=== PATIENT | female | born 1930 | race Caucasian/White ===

== ENCOUNTER 2017-01-22 02:34 | Emergency (ER) | payer OTHER, MEDICARE ==
[2017-01-22] MEDS ORDERED: NS 1,000 ML IV ONE (02:41)
--- NOTE | 2017-01-22 02:43 | EDPHY ---
H & P HPI/ROS: HPI CHIEF COMPLAINT: Generalized weakness, cough HISTORY OF PRESENT ILLNESS: Patient very pleasant 86-year-old female she presents emergency room from [facility] by EMS. Patient reports here from her private independent living facility for coughing and generalized weakness. Patient concerned she may have pneumonia. She denies any chest pain. Denies headache. Denies dizziness. She reports that for the past day she has been feeling globally weak. Denies fever. Past Medical History: Pneumonia, CVA, hypertension, thyroid disease, hearing impaired Past Surgical History: No recent surgery. Social History: Resides at [place]. Independent. Denies drugs alcohol tobacco products. Family History: Noncontributory ROS REVIEW OF SYSTEMS: A comprehensive 10 point review of systems is otherwise negative aside from elements mentioned in the history of present illness. Exam Constitutional appears well nontoxic, elderly, slightly dehydrated, triage nursing summary reviewed, vital signs reviewed, awake/alert. Eyes normal conjunctivae and sclera, EOMI, PERRLA. HENT normal inspection, atraumatic, dry mucus membranes, no epistaxis, neck supple/ no meningismus, no raccoon eyes. Respiratory clear to auscultation bilaterally, normal breath sounds, no respiratory distress, no wheezing. Cardiovascular rate normal, regular rhythm, no murmur, no edema, distal pulses normal. Gastrointestinal soft, non-tender, no rebound, no guarding, normal bowel sounds, no distension, no pulsatile mass. Genitourinary no CVA tenderness. Musculoskeletal no midline vertebral tenderness, full range of motion, no calf swelling, no tenderness of extremities, no meningismus, good pulses, neurovascularly intact. Skin pink, warm, & dry, no rash, skin atraumatic. Neurologic awake, alert and oriented x 3, AAOx3, moves all 4 extremities equally, motor intact, sensory intact, CN II-XII intact, normal cerebellar, normal vision, normal speech. Psychiatric normal mood/affect. Heme/Lymph/Immune no lymphadenopathy. Differential Diagnosis: Includes but is not limited to in a particular order dehydration, electrolyte disturbance, urinary tract infection, pneumonia, ACS Medical Decision Making: Plan for this patient IV establishment with IV fluid bolus, check UA, chest x-ray two view to rule out pneumonia. Breathing treatment. EKG troponin. Re-evaluate. Check electrolytes. Re-evaluation: EKG interpretation by me on record in [employer] system. Impression time of EKG 3:23 a.m.. Sinus rhythm 83. LVH present. Q-waves noted V1 V2 V3. V4. Otherwise unremarkable EKG. No acute ischemia. Left anterior fascicular block present. CT scan of the head without contrast for confusion not feeling well negative for bleed or stroke. ED x-ray chest two view: Calcified aorta. Otherwise I do not appreciate any pneumonia. 0628: I did re-evaluate this patient this time she is resting comfortably she has no complaints. She feels much better she would like to go home. She ambulated well to the bathroom. I have not found any signs of significant infection. Her blood work has been reviewed is reassuring. Chest x-ray shows no pneumonia EKG does not show an acute ischemic event troponin negative. UA does not indicate infection. She feels much better after 1 L normal saline. She would like to go home. Return precautions have been given. She understands to return emergency room if she develops worsening symptoms questions or concerns. Source: Patient, EMS - Medical/Surgical History Hx Asthma: No Hx Chronic Respiratory Disease: No Hx Diabetes: No Hx Cardiac Disease: No Hx Renal Disease: No Hx Cirrhosis: No Hx Alcoholism: No Hx HIV/AIDS: No Hx Splenectomy or Spleen Trauma: No Other PMH: PNA X5, Hysterectomy, Left Shoulder replacement. - Social History Smoking Status: Former smoker Constitutional: Initial Vital Signs Temperature (C) 36.6 C 01/22/17 02:45 Heart Rate 83 01/22/17 02:45 Respiratory Rate 18 01/22/17 02:45 Blood Pressure 153/80 H 01/22/17 02:45 O2 Sat (%) 94 01/22/17 02:45 O2 Delivery Mode Room Air Allergies/Adverse Reactions: alcohol Allergy (Verified 02/29/16 11:11) Home Medications: Medication Instructions Recorded Aspirin [Aspirin 81mg (*)] 81 mg PO DAILY 02/29/16 Levothyroxine [Synthroid 50 mcg 50 mcg PO DAILY06 02/29/16 (*)] Multivitamins [Multivitamin (*)] 1 each PO DAILY 02/29/16 amLODIPine BESYLATE [Norvasc 10 mg 10 mg PO DAILY 02/29/16 (*)] Hydrocodone/APAP 5/325 [[place] 0.5 - 2 tab PO Q4HRS PRN #40 tab 03/01/16 5/325 (*)] Lidocaine 5% [Lidoderm 5% Patch 1 ea TD DAILY #30 patch 03/01/16 (*)] Lisinopril [Zestril 5 mg (*)] 5 mg PO DAILY #30 tab 03/01/16 Patch Removal 1 ea TD DAILY21 #0 patch 03/01/16 Sennosides/Docusate Sodium 1 - 2 tab PO BID #60 tab 03/01/16 [Senokot-S] Medical Decision Making - Data Points Laboratory Results: Laboratory Results 01/22/17 02:30 01/22/17 02:30 01/22/17 01/22/17 01/22/17 05:58 03:15 02:30 WBC RBC Hgb Hct MCV MCH MCHC RDW Plt Count MPV Neut % (Auto) Lymph % (Auto) [place] % (Auto) Eos % (Auto) Baso % (Auto) Nucleat RBC Rel Count Absolute Neuts (auto) Absolute Lymphs (auto) Absolute Monos (auto) Absolute Eos (auto) Absolute Basos (auto) Absolute Nucleated RBC Immature Gran % Immature Gran # PT 13.7 SEC SEC (12.0-15.0) INR 1.06 (0.83-1.16) APTT 27.5 SEC SEC (23.0-38.0) Sodium 142 mEq/L mEq/L (134-144) Potassium 4.1 mEq/L mEq/L (3.5-5.2) Chloride 107 mEq/L mEq/L (97-110) Carbon Dioxide 23 mEq/l mEq/l (22-31) Anion Gap 12 mEq/L mEq/L (8-16) BUN 23 mg/dL mg/dL (7-23) Creatinine 1.4 mg/dL H mg/dL (0.6-1.0) Estimated GFR 35 Glucose 120 mg/dL H mg/dL (70-100) Calcium 9.3 mg/dL mg/dL (8.5-10.4) Magnesium 2.2 mg/dL mg/dL (1.6-2.3) Total Bilirubin 0.6 mg/dL mg/dL (0.1-1.4) Conjugated Bilirubin 0.1 mg/dL mg/dL (0.0-0.5) Unconjugated Bilirubin 0.5 mg/dL mg/dL (0.0-1.1) AST 26 IU/L IU/L (14-46) ALT 27 IU/L IU/L (9-52) Alkaline Phosphatase 85 IU/L IU/L (38-126) Creatine Kinase 68 IU/L IU/L (0-156) CK-MB (CK-2) Fraction < 0.22 ng/mL ng/mL (0.00-3.19) Troponin I < 0.012 ng/mL ng/mL (0.000-0.034) NT-Pro-B Natriuret Pep 132 pg/mL pg/mL (0-450) Total Protein 6.6 g/dL g/dL (6.3-8.2) Albumin 4.0 g/dL g/dL (3.5-5.0) Lipase 81 IU/L IU/L (23-300) Urine Color YELLOW Urine Appearance HAZY Urine pH 5.0 (5.0-7.5) Ur Specific [place] 1.015 (1.002-1.030) Urine Protein NEGATIVE (NEGATIVE) Urine Ketones NEGATIVE (NEGATIVE) Urine Blood NEGATIVE (NEGATIVE) Urine Nitrate NEGATIVE (NEGATIVE) Urine Bilirubin NEGATIVE (NEGATIVE) Urine Urobilinogen NEGATIVE EU EU (0.2-1.0) Ur Leukocyte Esterase TRACE H (NEGATIVE) Urine RBC 1-3 /hpf /hpf (0-3) Urine WBC 3-5 /hpf H /hpf (0-3) Ur Epithelial Cells TRACE /lpf /lpf (NONE-1+) Urine Mucus TRACE /lpf /lpf (NONE-1+) Urine Glucose NEGATIVE (NEGATIVE) 01/22/17 01/22/17 02:30 02:30 WBC 13.08 10^3/uL H 10^3/uL (3.80-9.50) RBC 4.40 10^6/uL 10^6/uL (4.18-5.33) Hgb 13.4 g/dL g/dL (12.6-16.3) Hct 40.7 % % (38.0-47.0) MCV 92.5 fL fL (81.5-99.8) MCH 30.5 pg pg (27.9-34.1) MCHC 32.9 g/dL g/dL (32.4-36.7) RDW 14.0 % % (11.5-15.2) Plt Count 234 10^3/uL 10^3/uL (150-400) MPV 10.7 fL fL (8.7-11.7) Neut % (Auto) 76.1 % H % (39.3-74.2) Lymph % (Auto) 14.6 % L % (15.0-45.0) [place] % (Auto) 5.3 % % (4.5-13.0) Eos % (Auto) 3.0 % % (0.6-7.6) Baso % (Auto) 0.8 % % (0.3-1.7) Nucleat RBC Rel Count 0.0 % % (0.0-0.2) Absolute Neuts (auto) 9.95 10^3/uL H 10^3/uL (1.70-6.50) Absolute Lymphs (auto) 1.91 10^3/uL 10^3/uL (1.00-3.00) Absolute Monos (auto) 0.69 10^3/uL 10^3/uL (0.30-0.80) Absolute Eos (auto) 0.39 10^3/uL 10^3/uL (0.03-0.40) Absolute Basos (auto) 0.11 10^3/uL H 10^3/uL (0.02-0.10) Absolute Nucleated RBC 0.00 10^3/uL 10^3/uL (0-0.01) Immature Gran % 0.2 % % (0.0-1.1) Immature Gran # 0.03 10^3/uL 10^3/uL (0.00-0.10) PT REJ INR REJ APTT REJ Sodium Potassium Chloride Carbon Dioxide Anion Gap BUN Creatinine Estimated GFR Glucose Calcium Magnesium Total Bilirubin Conjugated Bilirubin Unconjugated Bilirubin AST ALT Alkaline Phosphatase Creatine Kinase CK-MB (CK-2) Fraction Troponin I NT-Pro-B Natriuret Pep Total Protein Albumin Lipase Urine Color Urine Appearance Urine pH Ur Specific [place] Urine Protein Urine Ketones Urine Blood Urine Nitrate Urine Bilirubin Urine Urobilinogen Ur Leukocyte Esterase Urine RBC Urine WBC Ur Epithelial Cells Urine Mucus Urine Glucose Medications Given: Discontinued Medications Albuterol/Ipratropium (Duoneb) 3 ml IH EDNOW ONE Stop: 01/22/17 02:46 Last Admin: 01/22/17 03:57 Dose: 3 ml Sodium Chloride (Ns) 1,000 mls @ 0 mls/hr IV EDNOW ONE; Wide Open PRN Reason: Protocol Stop: 01/22/17 02:42 Last Admin: 01/22/17 03:56 Dose: 1,000 mls Departure - Departure Disposition: Home, Routine, Self-Care Clinical Impression: Dehydration Condition: Good Instructions: Dehydration (ED) Additional Instructions: 1. Increase your fluid intake drink more fluids. 2. Return emergency room if he develops worsening symptoms includes not feeling well, vomiting, chest pain high fever. 3. Rest. Referrals: Patient,NotPresent [Unknown] - As per Instructions
[2017-01-22] MEDS ORDERED: IPRATROPIUM/ALBUTEROL 3 ML DEYVIAL IH ONE (02:45)
[2017-01-22 02:54] LABS: % IMMATURE GRANULYOCYTES 0.2 % (0.0-1.1); ABSOLUTE IMMATURE GRANULOCYTES 0.03 10^3/uL (0.00-0.10); ADD DIFF? NO; ADD MORPH? NO; ADD SCAN? NO; ATYPICAL LYMPHOCYTE FLAG 0 (0-99); FRAGMENT RBC FLAG 0 (0-99); HEMATOCRIT 40.7 % (38.0-47.0); HEMOGLOBIN 13.4 g/dL (12.6-16.3); LEFT SHIFT FLG 0 (0-99); LIPEMIA HEMOLYSIS FLAG 80 (0-99); MEAN CELL HEMOGLOBIN 30.5 pg (27.9-34.1); MEAN CELL HEMOGLOBIN CONCENTR. 32.9 g/dL (32.4-36.7); MEAN CELL VOLUME 92.5 fL (81.5-99.8); MEAN PLATELET VOLUME 10.7 fL (8.7-11.7); PLATELET CLUMPS FLAG 10 (0-99); PLATELET COUNT 234 10^3/uL (150-400)
[2017-01-22 03:07] LABS: ALANINE AMINOTRANSFERASE 27 IU/L (9-52); ALKALINE PHOSPHATASE 85 IU/L (38-126); ANION GAP 12 mEq/L (8-16); ASPARTATE AMINOTRANSFERASE 26 IU/L (14-46); BILIRUBIN,TOTAL 0.6 mg/dL (0.1-1.4); BILIRUBIN-CONJUGATED 0.1 mg/dL (0.0-0.5); BILIRUBIN-UNCONJUGATED 0.5 mg/dL (0.0-1.1); CALCIUM 9.3 mg/dL (8.5-10.4); CARBON DIOXIDE 23 mEq/l (22-31); CHLORIDE 107 mEq/L (97-110); CREATININE 1.4 mg/dL (0.6-1.0); GLOMERULAR FILTRATION RATE 35; GLUCOSE 120 mg/dL (70-100); MAGNESIUM 2.2 mg/dL (1.6-2.3); POTASSIUM 4.1 mEq/L (3.5-5.2); SODIUM 142 mEq/L (134-144); TOTAL PROTEIN 6.6 g/dL (6.3-8.2)
[2017-01-22 03:19] LABS: TROPONIN I < 0.012 ng/mL (0.000-0.034)
[2017-01-22 03:21] LABS: CREATINE KINASE-MB FRACTION < 0.22 ng/mL (0.00-3.19)
--- NOTE | 2017-01-22 03:25 | CPEKG ---
Heart Rate: 83 RR Interval: 723 P-R Interval: 196 QRSD Interval: 104 QT Interval: 396 QTC Interval: 466 P [place]: 70 QRS [place]: -63 T Wave [place]: 57 EKG Severity - ABNORMAL ECG - EKG Impression: SINUS RHYTHM EKG Impression: LEFT ATRIAL ABNORMALITY EKG Impression: LEFT ANTERIOR FASCICULAR BLOCK EKG Impression: LEFT VENTRICULAR HYPERTROPHY EKG Impression: ANTERIOR INFARCT, OLD Electronically Signed By: Ian Gomez 22-Jan-2017 07:06:24
[2017-01-22 03:28] VITALS: RESP 18
[2017-01-22 03:37] LABS: APTT 27.5 SEC (23.0-38.0); INR 1.06 (0.83-1.16); PROTIME(PATIENT) 13.7 SEC (12.0-15.0)
[2017-01-22 06:07] LABS: COLOR YELLOW; LEUKOCYTE ESTERASE,URINE TRACE (NEGATIVE); NITRITE,URINE NEGATIVE (NEGATIVE)
[2017-01-22 06:09] LABS: MUCUS TRACE /lpf (NONE-1+)
[2017-01-22 07:05] VITALS: BP 143/67; PULSE 81; TEMP 97.3; O2SAT 92
== END 2017-01-22 07:01 | disposition home or self-care (01) ==
LOC: EDUNIT#
PROC: 3E0337Z Introduction of Electrolytic and Water Balance Substance into Peripheral Vein, Percutaneous Approach (ICD-10-PCS; principal; 2017-01-22)
DX: E86.9 Volume depletion, unspecified (principal); E86.0 Dehydration; I10 Essential (primary) hypertension; Z79.82 Long term (current) use of aspirin; Z86.73 Personal history of transient ischemic attack (TIA), and cerebral infarction without residual deficits; Z87.891 Personal history of nicotine dependence

== ENCOUNTER → 2017-03-17 | Outpatient (CLI) | payer OTHER, MEDICARE | LOC: FIMAGING 15:43 | PROVIDERS: ATTEND Internal Medicine | DX: R91.8 Other nonspecific abnormal finding of lung field (principal); I25.10 Atherosclerotic heart disease of native coronary artery without angina pectoris ==

== ENCOUNTER 2017-03-20 13:35 | Inpatient (IN) | payer OTHER, MEDICARE ==
[2017-03-20] MEDS ORDERED: NS 1,000 ML IV ONE (16:19)
[2017-03-20] MEDS ORDERED: METOCLOPRAMIDE 10 MG/2 ML VIAL IVP ONE (16:19)
--- NOTE | 2017-03-20 16:25 | EDPHY ---
H & P Stated Complaint: intermittent hall and weak i Time Seen by Provider: 03/20/17 16:05 HPI/ROS: CHIEF COMPLAINT: Intermittent headache HISTORY OF PRESENT ILLNESS: The patient is a 86-year-old female who is brought to the ER by her granddaughter foreign intermittent head headache over the last 2 days. No fevers. No trauma. No focal deficits. 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 She was seen in the ER 2 months ago and diagnosed with dehydration but abnormality seen on the chest x- ray. Her primary ordered a follow-up CT scan done 2 days ago where a 2 cm masses found in her right upper lobe concerning for carcinoma. The patient states she has had mild dyspnea on exertion over the last 2 months. What brings her to the ER today however his the headache that is new but only tends to last for a minute or 2 each time. She complains of mild sinus congestion that began today. REVIEW OF SYSTEMS: Constitutional: denies: chills, fever, recent illness, recent injury EENTM: See HPI Respiratory: See HPI Cardiac: denies: chest pain, irregular heart rate, lightheadedness, palpitations Gastrointestinal/Abdominal: denies: abdominal pain, diarrhea, nausea, vomiting, blood streaked stools Genitourinary: denies: dysuria, frequency, hematuria, pain Musculoskeletal: denies: joint pain, muscle pain Skin: denies: lesions, rash, jaundice, bruising Neurological: See HPI denies: numbness, paresthesia, tingling, dizziness, weakness Hematologic/Lymphatic: denies: blood clots, easy bleeding, easy bruising Immunologic/allergic: denies: HIV/AIDS, transplant EXAM: GENERAL: Well-appearing, well-nourished and in no acute distress. HEAD: Atraumatic, normocephalic. EYES: Pupils equal round and reactive to light, extraocular movements intact, sclera anicteric, conjunctiva are normal. ENT: TMs normal, nares patent, oropharynx clear without exudates. Moist mucous membranes. NECK: Normal range of motion, supple without lymphadenopathy or JVD. LUNGS: Breath sounds clear to auscultation bilaterally and equal. No wheezes rales or rhonchi. HEART: Regular rate and rhythm without murmurs, rubs or gallops. ABDOMEN: Soft, nontender, normoactive bowel sounds. No guarding, no rebound. No masses appreciated. BACK: No CVA tenderness, no spinal tenderness, step-offs or deformities EXTREMITIES: Normal range of motion, no pitting or edema. No clubbing or cyanosis. NEUROLOGICAL: Cranial nerves II through XII grossly intact. Normal speech, normal gait. 5/5 strength, normal movement in all extremities, normal sensation PSYCH: Normal mood, normal affect. SKIN: Warm, dry, normal turgor, no visible rashes or lesions. Source: Patient Exam Limitations: No limitations - Personal History Current Tetanus/Diphtheria Vaccine: Unsure - Medical/Surgical History Hx Asthma: No Hx Chronic Respiratory Disease: No Hx Diabetes: No Hx Cardiac Disease: No Hx Renal Disease: No Hx Cirrhosis: No Hx Alcoholism: No Hx HIV/AIDS: No Hx Splenectomy or Spleen Trauma: No Other PMH: PNA X5, Hysterectomy, Left Shoulder replacement. - Family History Significant Family History: No pertinent family hx - Social History Smoking Status: Former smoker Alcohol Use: Sober Drug Use: None Constitutional: Initial Vital Signs Temperature (C) 36.7 C 03/20/17 13:50 Heart Rate 94 03/20/17 13:50 Respiratory Rate 17 03/20/17 13:50 Blood Pressure 169/93 H 03/20/17 13:50 O2 Sat (%) 94 03/20/17 13:50 O2 Delivery Mode Room Air Allergies/Adverse Reactions: alcohol Allergy (Verified 03/20/17 13:49) Home Medications: Medication Instructions Recorded Levothyroxine [Synthroid 50 mcg 50 mcg PO DAILY06 02/29/16 (*)] amLODIPine BESYLATE [Norvasc 10 mg 10 mg PO DAILY 02/29/16 (*)] Alendronate Sodium [Fosamax 70 MG 70 mg PO Q7D 03/20/17 (*)] Ergocalciferol [Vitamin D2 (*)] 50,000 unit PO Q30D 03/20/17 Herbals/Supplements -Info Only 1 ea PO DAILY 03/20/17 Venlafaxine HCl [Venlafaxine 75MG 112.5 mg PO DAILY 03/20/17 (*)] Medical Decision Making - Diagnostics Imaging: Discussed imaging studies w/ call or contact centre manager Radiologist ED Course/Re-evaluation: 6:30 p.m. the patient states that she does not feel any different. She got up to go to the bathroom and felt extremely weak and had to hold onto the wall. We discussed her CT and lab results which thus far reassuring. Urinalysis is still pending. I discussed the case with Dr. Mack who will admit to the medical service. Differential Diagnosis: Partial list of the Differential diagnosis considered include but were not limited to; tension headache, metastasis, dehydration, PE, cancer and although unlikely based on the history and physical exam, I also considered pneumonia, CVA, dissection. - Data Points Laboratory Results: Laboratory Results 03/20/17 17:20 03/20/17 17:20 Medications Given: Alendronate Sodium (Fosamax) 70 mg PO Q7D [facility] Stop: 09/17/17 10:44 Last Admin: 03/22/17 09:56 Dose: Not Given Amlodipine Besylate (Norvasc) 10 mg PO DAILY [facility] Stop: 09/17/17 08:59 Last Admin: 03/22/17 09:00 Dose: 10 mg Enoxaparin Sodium (Lovenox) 30 mg SC DAILY [facility] Stop: 09/17/17 08:59 Last Admin: 03/21/17 10:02 Dose: Not Given Hydralazine HCl (Apresoline) 10 mg PO Q6H PRN PRN Reason: sbp >160 Stop: 09/16/17 19:59 Last Admin: 03/22/17 05:17 Dose: 10 mg Levothyroxine Sodium (Synthroid) 50 mcg PO DAILY06 [facility] Stop: 09/17/17 05:59 Last Admin: 03/22/17 05:08 Dose: 50 mcg Senna/Docusate Sodium (Senokot-S) 1 - 2 tab PO BID [facility]DA PRN Reason: Protocol Stop: 09/18/17 20:59 Last Admin: 03/22/17 20:27 Dose: 1 tab Venlafaxine HCl (Venlafaxine Hcl) 112.5 mg PO DAILY [facility] Stop: 09/18/17 08:59 Last Admin: 03/22/17 09:00 Dose: Not Given Discontinued Medications Albuterol (Proventil Neb) 3 ml IH ONCE ONE Stop: 03/22/17 13:31 Last Admin: 03/22/17 15:28 Dose: Not Given Albuterol (Proventil Neb) 3 ml IH .STK-MED ONE Stop: 03/22/17 13:31 Last Admin: 03/22/17 13:30 Dose: 3 ml Fentanyl (Sublimaze) 75 mcg IVP .STK-MED ONE Stop: 03/22/17 13:42 Last Admin: 03/22/17 13:41 Dose: 75 mcg Sodium Chloride (Ns) 1,000 mls @ 0 mls/hr IV ONCE ONE; Wide Open PRN Reason: Protocol Stop: 03/20/17 16:20 Last Admin: 03/20/17 17:22 Dose: 1,000 mls Sodium Chloride (Ns) 1,000 mls @ 75 mls/hr IV CONT [facility] Stop: 09/16/17 19:44 Last Admin: 03/21/17 20:50 Dose: 1,000 mls Labetalol HCl (Trandate Injection) 10 mg IVP ONCE ONE Stop: 03/20/17 19:16 Last Admin: 03/20/17 19:48 Dose: 10 mg Lidocaine (Lidocaine 2% Jelly) 1 baron TP .STK-MED ONE Stop: 03/22/17 13:44 Last Admin: 03/22/17 13:43 Dose: 1 baron Lidocaine HCl (Lidocaine Hcl 1%) 30 mg MISC .STK-MED ONE Stop: 03/22/17 13:44 Last Admin: 03/22/17 13:43 Dose: 30 mg Lidocaine HCl (Lidocaine Hcl 4% Topical Solution) 2 ml MM .STK-MED ONE Stop: 03/22/17 13:31 Last Admin: 03/22/17 13:30 Dose: 2 ml Metoclopramide HCl (Reglan Injection) 10 mg IVP EDNOW ONE Stop: 03/20/17 16:20 Last Admin: 03/20/17 17:35 Dose: Not Given Midazolam HCl (Versed) 3 mg IVP .STK-MED ONE Stop: 03/22/17 13:42 Last Admin: 03/22/17 13:41 Dose: 3 mg Promethazine HCl (Phenergan) 12.5 mg IVP EDNOW ONE Stop: 03/20/17 16:30 Last Admin: 03/20/17 17:22 Dose: 12.5 mg Departure - Departure Disposition: [facility] Acute Clinical Impression: Mass of lung Headache Qualifiers: Headache type: unspecified Headache chronicity pattern: acute headache Intractability: not intractable Qualified Code(s): R51 - Headache Condition: Fair
[2017-03-20] MEDS ORDERED: PROMETHAZINE HCL 25 MG/ML INJ IVP ONE (16:29)
[2017-03-20] MEDS ORDERED: PROMETHAZINE HCL 25 MG/ML INJ ONE (16:30)
[2017-03-20 17:36] LABS: PLATELET COUNT 225 10^3/uL (150-400)
[2017-03-20 17:43] LABS: INR 0.97 (0.83-1.16); PROTIME(PATIENT) 13.1 SEC (12.0-15.0)
[2017-03-20] MEDS ORDERED: LABETALOL HCL 5 MG/ML 20 ML MDV IVP ONE (19:15)
[2017-03-20] MEDS ORDERED: ACETAMINOPHEN 325 MG TAB PO PRN (19:45)
[2017-03-20] MEDS ORDERED: ONDANSETRON DISINTEGRATING 4 MG TAB PO PRN (19:45)
[2017-03-20] MEDS ORDERED: ONDANSETRON 4 MG/2 ML VIAL IVP PRN (19:45)
--- NOTE | 2017-03-20 20:39 | GHP ---
[f rep st] HISTORY AND PHYSICAL DATE OF ADMISSION: 03/20/2017 CHIEF COMPLAINT: Weakness. HISTORY OF PRESENT ILLNESS: The patient is an 86-year-old female with a history of TIA, hypertension, and recurrent pneumonia, who presents to the emergency department with weakness. In addition, she complains of headaches over the past 2 days. She denies fevers. She denies chest pain, shortness of breath, abdominal pain, nausea, vomiting, diarrhea, or urinary symptoms. She is followed by Dr. Kovacs, through [facility]. A chest x-ray done back in January revealed a right upper lobe mass. An outpatient CT scan was then performed on March 17, which confirmed an irregular 1.9 cm right upper lobe mass highly suspicious for malignancy. They have not yet discussed the results with her primary care physician, and this was reviewed with them upon arrival to the emergency department. Given her weakness, headache, and lung mass, she was admitted to the hospital for further evaluation. In the emergency department, a head CT was negative for an acute intracranial process. PAST MEDICAL HISTORY: 1. Hypertension. 2. Recurrent pneumonia. 3. Hypothyroidism. 4. History of TIA. 5. Hearing deficit. PAST SURGICAL HISTORY: Left shoulder surgery and hysterectomy. FAMILY HISTORY: Negative for malignancy. SOCIAL HISTORY: The patient is a former smoker with a [id number] history, though she quit in the 1970s. She denies alcohol or drug use. She resides at [facility]. REVIEW OF SYSTEMS: A 10-point review of systems was performed and is negative except as per HPI. PHYSICAL EXAMINATION: VITAL SIGNS: Temperature 36.8, blood pressure 125/99, heart rate 92, respiratory rate 16. She is 95% on room air. GENERAL: The patient is awake, alert, and oriented, in no acute distress. She is hard of hearing. HEENT: Head is atraumatic, normocephalic. Pupils equal, round, react to light. Extraocular muscles are intact. Oropharynx is clear. Mucous membranes are moist. NECK: Supple. There is no JVD. HEART: Regular rate and rhythm. LUNGS: Clear to auscultation bilaterally. ABDOMEN: Soft, nondistended, nontender. Normoactive bowel sounds. EXTREMITIES: Without cyanosis, clubbing, or edema. NEUROLOGIC: Grossly nonfocal. She moves all 4 extremities. A bit confused. LABORATORY DATA: CBC reveals a normal white blood cell count, normal platelets. INR is 0.97. Basic metabolic panel shows normal electrolytes. Creatinine 1.5, BUN 28. Urinalysis shows 1+ protein, 15-25 white cells, trace bacteria and negative nitrites. Head CT performed in the emergency department is negative for an acute intracranial process, although it does show some diffuse cerebral atrophy and findings consistent with chronic microvascular ischemic gliosis. Chest CT without contrast shows an irregular 1.9 cm right upper lobe mass highly suspicious for malignancy, as well as multifocal subcentimeter ground- glass opacities, which could be related to bronchioloalveolar cell carcinoma, but are nonspecific. Coronary artery atherosclerosis is also noted. ASSESSMENT AND PLAN: The patient is an 86-year-old female with a history of hypertension and recurrent pneumonia, who presents to the emergency department with weakness, and is noted to have a right upper lobe mass on recent CT scan. 1. Right upper lobe mass. The patient wishes to proceed with further evaluation including biopsy and oncology consult. I reviewed the imaging with Radiology and this is likely amenable to interventional radiology biopsy. I also discussed the case with Oncology. We will proceed with a CT abdomen and pelvis to evaluate for any evidence of metastatic disease and also consider if there is a more amenable biopsy site. If not, the patient will be made n.p.o. at midnight in preparation for possible interventional radiology biopsy of her right upper lobe mass. Dr. Rausch, from the oncology service, will see the patient tomorrow. 2. Weakness. It is unclear if this may be related to malignancy versus volume depletion. There is no evidence of infection. She is afebrile and has a normal white count. As above, we will gently hydrate her and further workup of her lung mass is planned. Physical therapy and occupational therapy evaluations are requested. 3. Headache. I suspect this is related to her hypertension, which is poorly controlled. I will give her intravenous labetalol now along with p.r.n. hydralazine, and will need to continue her outpatient medications once her medication reconciliation is continued. She may warrant up-titration for better blood pressure control. 4. Chronic kidney disease. The patient's baseline creatinine is 1.4-1.5, and this has been stable since February 2016, therefore, I suspect she is at baseline. The CT scan referenced above will be performed without contrast. I will give her some gentle hydration with normal saline overnight to see if this improves, especially given her azotemia, which suggests a prerenal state. 5. Hypothyroidism. We will continue her levothyroxine once her medication reconciliation is completed. 6. Deep venous thrombosis prophylaxis. Lovenox is ordered to begin Monday morning. I will hold this for tomorrow given the possibility of intervention. Sequential compression devices are ordered for now. 7. Code status: Patient is full code. 8. Disposition. Patient is admitted to inpatient status. I anticipate she will require greater than 48 hours hospitalization for ongoing management of her headache, weakness, hypertension, and further evaluation of her lung mass. /[id number]/MODL MTDD
[2017-03-20] MEDS: NS 1,000 ML IV SCH (22:09)
[2017-03-21] MEDS: LEVOTHYROXINE 50 MCG TAB PO SCH (05:03)
[2017-03-21] MEDS ORDERED: ENOXAPARIN 30 MG/0.3 ML SYR SC SCH (09:00)
--- NOTE | 2017-03-21 09:40 | HOSPPROG ---
Hospitalist Progress Note Assessment/Plan: 86-year-old admitted for weakness, she has a history of hypertension, TIAs and recurrent pneumonia. Additionally she was recently noted to have a lung mass on CT scan, which has not been worked up yet. # weakness: Likely multifactorial, electrolytes stable renal function stable. Neurologic exam is nonfocal * Proceed with workup for lung mass as above * Physical and occupational therapy * Supportive care * Depending on tissue could consider MRI of the brain # lung mass: Likely primary however CT of the abdomen and pelvis is pending * discussed with oncology, mass may be high risk for pneumo for CT guided biopsy , * will discuss with pulm re: bronch, likely mediastinal nodes noted. # hypertension: Still elevated but better today will continue to monitor on p.r.n. IV medicines # hypothyroidism: On replacement and TSH within normal limits # history of TIA # chronic renal insufficiency stage III, baseline creatinine 1.4 # DVT proph: SCD, chem proph on hold for possible biopsy. Subjective: Patient new to me and chart reviewed. Complains of weakness it is difficult to estimate how long she has been weak it sounds like it has been intermittent. She does live in custodial. No specific complaints. Objective: Vital Signs Temp Pulse Resp BP Pulse Ox 36.7 C 73 14 128/67 H 93 03/21/17 08:19 03/21/17 08:19 03/21/17 08:19 03/21/17 08:19 03/21/17 08:19 Laboratory Results 03/21/17 05:04 03/20/17 03/21/17 03/22/17 05:59 05:59 05:59 Intake Total 1531 Output Total 400 Balance 1131 PT 13.1 SEC (12.0-15.0) 03/20/17 17:20 INR 0.97 (0.83-1.16) 03/20/17 17:20 - Physical Exam Constitutional: no apparent distress Eyes: PERRL, anicteric sclera, EOMI Ears, Nose, Mouth, Throat: moist mucous membranes, ears appear normal Cardiovascular: regular rate and rhythym Respiratory: no respiratory distress, clear to auscultation Gastrointestinal: normoactive bowel sounds, no palpable masses Genitourinary: no bladder fullness Skin: warm, No normal color (Pale) Musculoskeletal: generalized weakness, No muscular tenderness Neurologic: weakness (Generalized, no focal finding), No facial droop Psychiatric: interacting appropriately Lymph, Heme, Immunologic: no cervical LAD ICD10 Worksheet Patient Problems: Problems Problem Status Onset Headache Acute Mass of lung Acute Multiple fractures of ribs of left side Acute
[2017-03-21] MEDS: NS 1,000 ML IV SCH ×2 (10:00→20:50)
[2017-03-21] MEDS ORDERED: ALENDRONATE SODIUM 70 MG TAB PO SCH (10:45)
--- NOTE | 2017-03-21 10:56 | PDMN ---
Medical Necessity Medical necessity: Pt meets IP criteria per MD; est los >2 mn for eval/tx of R upper lobe mass, generalized weakness, headache, & htn; admit for further workup /monitoring, IVFs, med management, Oncology consult & therapies; hx TIA, htn, recurrent pneumonia, CKD; per H&P & order 03/20/17
--- NOTE | 2017-03-21 11:35 | GCON ---
[f rep st] CONSULTATION REQUESTING PHYSICIAN: Mary Kay Mack MD REASON FOR CONSULTATION: Possible right lung cancer. RECOMMENDATIONS: 1. Check CEA. 2. Instead of trying to do a transthoracic biopsy of her right lung mass, I would first consult Pulm onology to see if tissue could be obtained with bronchoscopy. The mass seems to be surrounded by a f air amount of lung tissue and I am concerned that an attempted biopsy would result in a pneumothorax. 3. Based on the patient's CT scan, she appears to have multiple nodules in both lungs. If this is a primary lung cancer, it would make her unresectable. We would therefore need tissue to look for tar gets that would be amenable to targeted agents. 4. At some point, after a diagnosis is made, the patient will need to have a PET-CT for staging. 5. Whether or not she wishes to embark on therapy will require discussion with the patient and her f amily and will also, in a large part, depend on what her therapeutic options are likely to be. ASSESSMENT: This 86-year-old very pleasant woman presented to the emergency room with weakness and w as also complaining of a cough. She denies any hemoptysis. She has had no weight loss. Her history is somewhat difficult to obtain because of her deafness, so some information is obtained from the [facility]. The patient's imaging is very suspicious for a primary lung cancer of the right lung. She does have a 35-pack year smoking history, although she quit in 1980. I think the lewis issue will be obtaining a tissue diagnosis. If this does not look like lung cancer, then hopefully getting enough material fo r testing for EGFR status as well as ALK and Ross-1 will be helpful. In addition, we would also hope to get enough tissue for PD-L1 testing. Once the full picture is elucidated and we know the extent of disease, we can have a discussion as to whether one of the targeted agents is appropriate or wheth er best supportive care might be the best alternative. HISTORY OF PRESENT ILLNESS: Please see assessment. PAST MEDICAL HISTORY: Hypertension, recurring pneumonia, hypothyroidism, history of TIA, and deafnes s, as previously mentioned. PAST SURGICAL HISTORY: Left shoulder surgery as well as a hysterectomy. FAMILY HISTORY: Apparently unremarkable for malignancy. SOCIAL HISTORY: The patient smoked from approximately the age of 16 until 1980. She smoked approxim ately 1 pack of cigarettes per day, which gives her an approximately 35-pack year history. She does not use drugs or alcohol. She lives at the [facility]. PRIMARY CARE PHYSICIAN: Dr. Kovacs who sees her through physician house calls. REVIEW OF SYSTEMS: Remarkable for a dry cough and increased weakness. No weight loss. She has also had some headaches. Her 10-system review is otherwise unremarkable. PHYSICAL EXAMINATION: GENERAL: This is an alert, hard of hearing, and pleasant woman who is playing Words with Friends on her tablet device. NECK: No adenopathy. LUNGS: Few rales at the left base. CARDIAC: Regular rhythm. ABDOMEN: No hepatosplenomegaly to palpation. She has a soft abdomen an d active bowel sounds. No ascites is noted. LYMPH NODES: Peripheral lymph node exam shows no palpa ble adenopathy in the neck, axilla, or groin bilaterally. MUSCULOSKELETAL: Significant kyphosis. We will look forward to following along with her during this hospitalization and beyond as the inform ation comes in and we continue with the decision-making process. /[id number]/MODL
--- NOTE | 2017-03-21 15:46 | ASMTCMCOM ---
CM Note CM Note Notes: Pt admitted with headache and lung mass. Hx of HTN, TIAs, PNA. She lives at [facility]. PT/OT have cleared her. Pt to have workup for lung mass. CM will follow for any d/c needs. Date Signed: 03/21/2017 03:45 PM Electronically Signed By:TABATHA Briones
[2017-03-21] MEDS: hydrALAZINE 10 MG TAB PO PRN (20:49)
--- NOTE | 2017-03-21 20:58 | GCON ---
[f rep st] CONSULTATION CHEST CONSULTATION I have been asked to see patient by Dr. Mag Henriquez for my opinion of a right upper lobe lung mass. HISTORY OF PRESENT ILLNESS: The patient is an extremely pleasant 86-year-old white female with a pas t medical history including hypertension, recurrent pneumonia, hypothyroidism, and a TIA. She was ad mitted on 03/20/2017 for weakness. Subsequent workup revealed a right upper lobe 1.9 cm mass. In di scussion with the patient, states overall she is feeling somewhat better, but still weak. She denies any cough or productive sputum. There is no chest pain, pleuritic-type chest pain or angina equival ent. She denies any hemoptysis. She has no weight loss. There has been no fever or night sweats. Currently, she is resting comfortably. PAST MEDICAL HISTORY: Significant for hypertension, recurrent pneumonia, hypothyroidism, history of TIA. FAMILY HISTORY: Noncontributory. SOCIAL HISTORY: A 40+ pack-year smoking history, quit in 1979. She denies any alcohol use since 197 6. She is . She resides at [facility]. She has lived in [place] for appr oximately 3 years. She is originally from [place]. PAST SURGICAL HISTORY: She has had a left shoulder surgery and hysterectomy. REVIEW OF SYSTEMS: A 10-point review of symptoms was performed, and is negative except for what is l isted in HPI. PHYSICAL EXAM: VITAL SIGNS: Blood pressure is 164/86, pulse 82, respirations are 15, temperature 36 .8, oxygen saturation 94% on 1.75 L. GENERAL: She is a well-developed, well-nourished, elderly whit e female who is resting comfortably, in no acute distress. HEENT: Eyes are PERRLA, EOMI. Throat sh ows no erythema or tonsillar hypertrophy. NECK: Supple. No cervical adenopathy. HEART: Regular r ate and rhythm with a 2/6 systolic murmur at left sternal border without radiation. LUNGS: Diminish ed breath sounds. Mild prolongation expiratory phase, but no wheeze. ABDOMEN: Soft, nontender. Sundeep wel sounds are present in all 4 quadrants. EXTREMITIES: No clubbing, cyanosis, or edema. LABORATORIES: White count is 8.5, hemoglobin 14, hematocrit 44, platelet count 225, INR is 0.97, sod ium 144, potassium 4.0, chloride 110, CO2 21, BUN is 24, creatinine 1.4, glucose is 92. CT scan of the chest again reveals a 2 cm right upper lobe irregular shaped mass. There are also sub centimeter ground-glass opacifications throughout both lungs. IMPRESSION: Lung mass, etiology of which is unclear, though bronchogenic carcinoma would appear to b e most likely. RECOMMENDATIONS: We will perform fiberoptic bronchoscopy tomorrow. /[id number]/MODL
[2017-03-22] MEDS: LEVOTHYROXINE 50 MCG TAB PO SCH (05:08)
[2017-03-22] MEDS: hydrALAZINE 10 MG TAB PO PRN ×2 (05:17→22:23)
[2017-03-22 05:46] LABS: PLATELET COUNT 198 10^3/uL (150-400)
--- NOTE | 2017-03-22 08:46 | HOSPPROG ---
Hospitalist Progress Note Assessment/Plan: # RUL mass, multifocal ground glass opacities - bronchoscopy for bx today # weakness, multifocal - treat htn, possible malig and follow - PT/OT rec's home # htn - still elevated but has been labile - cont norvasc today and follow; consider starting another agent - hydralazine prn # hypothyroid - synthroid # hx TIA - not being treated # depr - effexor # CKD - probably baseline # dvt ppx - lovenox Subjective: still feels weak; discussed the broncoscopy today Objective: Vital Signs Temp Pulse Resp BP Pulse Ox 36.4 C 95 18 169/98 H 93 03/22/17 08:08 03/22/17 08:08 03/22/17 08:08 03/22/17 08:08 03/22/17 08:08 Laboratory Results 03/22/17 05:10 03/22/17 05:10 03/21/17 03/22/17 03/23/17 05:59 05:59 05:59 Intake Total 1531 2161 Output Total 400 1400 Balance 1131 761 PT 13.1 SEC (12.0-15.0) 03/20/17 17:20 INR 0.97 (0.83-1.16) 03/20/17 17:20 CT chest, abd, head reviewed chart reviewed - Physical Exam Constitutional: no apparent distress, appears nourished, not in pain Cardiovascular: regular rate and rhythym, no murmur, rub, or gallop Respiratory: no respiratory distress, no rales or rhonchi, clear to auscultation Gastrointestinal: normoactive bowel sounds, soft, non-tender abdomen, no palpable masses ICD10 Worksheet Patient Problems: Problems Problem Status Onset Multiple fractures of ribs of left side Acute Headache Acute Mass of lung Acute
[2017-03-22] MEDS: VENLAFAXINE HCL 75 MG TAB PO SCH (09:00)
--- NOTE | 2017-03-22 09:57 | SOAPPROG ---
JIM Progress Note Assessment/Plan: Assessment: - RUL lung mass with multiple bilateral pulmonary nodules. Patient is to get a bronchoscopy today for diagnostic purposes. - She has no new questions until more information is available. Plan: - Bronch today - Home when back to baseline for follow up as an outpatient. Subjective: No new complaints Objective: Vital Signs Temp Pulse Resp BP Pulse Ox 36.4 C 95 18 169/98 H 93 03/22/17 08:08 03/22/17 08:08 03/22/17 08:08 03/22/17 08:08 03/22/17 08:08 Laboratory Results 03/22/17 05:10 03/22/17 05:10 03/20/17 03/21/17 03/22/17 23:59 23:59 23:59 Intake Total 1000 1842 850 Output Total 1200 600 Balance 1000 642 250 PT 13.1 SEC (12.0-15.0) 03/20/17 17:20 INR 0.97 (0.83-1.16) 03/20/17 17:20 Physical Exam - Physical Exam General Appearance: alert, no apparent distress Respiratory: No crackles, No rales, No rhonchi, No stridor, No wheezing Cardiac/Chest: regular rate, rhythm Abdomen: non-tender, soft Neuro/Psych: alert, normal mood/affect ICD10 Worksheet Patient Problems: Problems Problem Status Onset Headache Acute Mass of lung Acute Multiple fractures of ribs of left side Acute
[2017-03-22] MEDS ORDERED: LACTULOSE 20 GM/30 ML UDCUP PO PRN (10:03)
[2017-03-22] MEDS ORDERED: MAGNESIUM HYDROXIDE 30 ML UDCUP PO PRN (10:03)
[2017-03-22] MEDS ORDERED: POLYETHYLENE GLYCOL 3350 17 GM PKT PO PRN (10:03)
[2017-03-22] MEDS ORDERED: BISACODYL 10 MG SUPP PR PRN (10:03)
[2017-03-22] MEDS ORDERED: traMADol 50 MG TAB PO PRN (10:03)
[2017-03-22] MEDS ORDERED: ALBUTEROL 3 ML DEYVIAL ONE (12:18)
[2017-03-22] MEDS ORDERED: LIDOCAINE 1% 300 MG/30 ML SDV ONE (12:18)
[2017-03-22] MEDS ORDERED: LIDOCAINE 2% JELLY 5 ML TUBE ONE (13:00)
[2017-03-22] MEDS ORDERED: ALBUTEROL 3 ML DEYVIAL IH ONE ×2 (13:30)
[2017-03-22] MEDS ORDERED: LIDOCAINE HCL 4% TOPICAL SOLN 50ML MM ONE (13:30)
[2017-03-22] MEDS ORDERED: MIDAZOLAM 2 MG/2 ML VIAL ONE (13:30)
[2017-03-22] MEDS ORDERED: fentaNYL 100 MCG/2 ML INJ ONE (13:30)
--- NOTE | 2017-03-22 13:30 | PDPROPOC ---
Sedation Plan of Care Sedation Plan of Care: vital signs stable, mental status noted, patient educated of risks, benefits, alternatives, patient can tolerate sedation ASA Classification: ASA 2 Planned drugs: fentanyl, midazolam Mallampati Score: Class 2 Mallampati Reference Image: Patient passed 3-3-2 rule?: Yes
[2017-03-22] MEDS ORDERED: fentaNYL 100 MCG/2 ML INJ IVP ONE (13:41)
[2017-03-22] MEDS ORDERED: MIDAZOLAM 2 MG/2 ML VIAL IVP ONE (13:41)
[2017-03-22] MEDS ORDERED: LIDOCAINE 1% 300 MG/30 ML SDV MISC ONE (13:43)
[2017-03-22] MEDS ORDERED: LIDOCAINE 2% JELLY 5 ML TUBE TP ONE (13:43)
--- NOTE | 2017-03-22 14:01 | BVPULMO ---
[facility]- Pulmonology Patient Name: Gali Martin Procedure Date: 03/22/2017 12:57 PM Patient Type: Inpatient Attending MD/ER Physician: Sanchez Haro MD Procedure: Bronchoscopy Indications: Right upper lobe mass Providers: Sanchez Haro MD Medicines: Lidocaine 1% applied to cords 2 mL, Lidocaine 1% subglottic space 4 mL, Midazol am 3 mg mg IV, Fentanyl 75 mcg IV Complications: No immediate complications Procedure: After informed consent, a time out was performed. N95 masks were worn, and the procedure was done in a negative pressure room. The patient was given appropria te topical anesthesia and intravenous sedation. The fiberopic bronchoscope was pas sed via a bite block orally into the larynx and subsequently into the lower trachea bronchial tree. Throughout the procedure, the patient's blood pressure, pulse, and oxygen saturations were monitored continuously. The Bronchoscope (Video) was introduced through the mouth and advanced to the tracheobronchial tree of both lungs. The procedure was accomplished without difficulty. The patient tolerated the procedure well. The total duration of the procedure was 19 minutes. Total fluoroscopy time was 1 minute, 30 seconds. Findings: The oropharynx appears normal. The larynx appears normal. The vocal cords appea r normal. The subglottic space is normal. The trachea is of normal caliber. The c nelly is sharp. The tracheobronchial tree was examined to at least the first subsegme ntal level. Bronchial mucosa and anatomy are normal; there are no endobronchial lesi ons, and no secretions. Endobronchial biopsies of a mass were performed in the right upper lobe using a forceps. Five samples were obtained. Bronchoalveolar lavage was performed in the RUL apical segment (B1) of the lung and sent for cell count, bacterial culture, viral smears & culture, and fungal & AF B analysis and cytology. 80 mL of fluid were instilled. 40 mL were returned. The return was bloody. There were no mucoid plugs in the return fluid. Post Op Diagnosis: - Right upper lobe mass - The examination was normal. - An endobronchial biopsy was performed. - Bronchoalveolar lavage was performed. Estimated Blood Loss: Estimated blood loss: none. Recommendation: - Await BAL and biopsy results. Attending Participation: I personally performed the entire procedure. Sanchez Haro MD Sanchez Haro MD 03/22/2017 2:00:27 PM This report has been signed electronicallyThomas MD Tahir Number of Addenda: 0 Note Initiated On: 03/22/2017 12:57 PM [email or web address]
--- NOTE | 2017-03-22 14:46 | SOAPPROG ---
SOAP Progress Note Assessment/Plan: Assessment: * Right upper lobe lung mass * Weakness * Dyspnea Plan: Will perform fiberoptic bronchoscopy today Subjective: Resting comfortably. Denies any cough or production of sputum. There is no fever. She is breathing easily Objective: Vital Signs Temp Pulse Resp BP Pulse Ox 37.0 C 95 18 149/108 H 93 03/22/17 13:15 03/22/17 13:15 03/22/17 13:15 03/22/17 13:15 03/22/17 13:15 Laboratory Results 03/22/17 05:10 03/22/17 05:10 03/21/17 03/22/17 03/23/17 05:59 05:59 05:59 Intake Total 1531 2161 Output Total 400 1400 100 Balance 1131 761 -100 PT 13.1 SEC (12.0-15.0) 03/20/17 17:20 INR 0.97 (0.83-1.16) 03/20/17 17:20 - Time Spent With Patient Time Spent With Patient: 25 min of time spent with patient, over half involved with coordination of care or counseling Physical Exam - Physical Exam General Appearance: alert, no apparent distress EENT: PERRL/EOMI, normal ENT inspection Neck: non-tender Respiratory: decreased breath sounds, prolonged expiration, No wheezing Cardiac/Chest: normal peripheral pulses, regular rate, rhythm, systolic murmur Abdomen: normal bowel sounds, non-tender, soft Pelvic Exam: deferred Rectal: deferred Skin: normal color, warm/dry Extremities: normal range of motion, non-tender, normal inspection, normal capillary refill Neuro/Psych: alert, oriented x 3 ICD10 Worksheet Patient Problems: Problems Problem Status Onset Headache Acute Mass of lung Acute Multiple fractures of ribs of left side Acute
[2017-03-22] MEDS: SENNOSIDES/DOCUSATE SODIUM TAB PO SCH (20:27)
[2017-03-22 22:06] VITALS: O2SAT 94
[2017-03-23] MEDS: LEVOTHYROXINE 50 MCG TAB PO SCH (04:56)
[2017-03-23] MEDS: hydrALAZINE 10 MG TAB PO PRN (04:58)
[2017-03-23 08:56] VITALS: BP 151/96; PULSE 108; RESP 20; TEMP 97.7
[2017-03-23] MEDS: VENLAFAXINE HCL 75 MG TAB PO SCH (09:44)
[2017-03-23] MEDS: SENNOSIDES/DOCUSATE SODIUM TAB PO SCH (09:45)
--- NOTE | 2017-03-23 12:07 | PDIAF ---
- Diagnosis Diagnosis: RUL mass s/p biopsy Code Status: Full Code - Medication Management Discharge Medications: Medications to Continue on Transfer Levothyroxine [Synthroid 50 mcg (*)] 50 mcg PO DAILY06 02/29/16 [Last Taken Unknown] amLODIPine BESYLATE [Norvasc 10 mg (*)] 10 mg PO DAILY 02/29/16 [Last Taken Unknown] Alendronate Sodium [Fosamax 70 MG (*)] 70 mg PO Q7D 03/20/17 [Last Taken Unknown ] Ergocalciferol [Vitamin D2 (*)] 50,000 unit PO Q30D 03/20/17 [Last Taken Unknown ] Herbals/Supplements -Info Only 1 ea PO DAILY 03/20/17 [Last Taken Unknown] Venlafaxine HCl [Venlafaxine 75MG (*)] 112.5 mg PO DAILY 03/20/17 [Last Taken Unknown] Atenolol [Tenormin 25 mg (*)] 25 mg PO DAILY #30 tab 03/23/17 [Last Taken Unknown] Discharge Medications: Refer to the Discharge Home Medication list for PRN reason. - Orders Services needed: Home Care, Registered Nurse, Physical Therapy, Occupational Therapy Home Care Face to Face: I certify that this patient was under my care and that I had the required [id number] encounter meeting the encounter requirements on the discharge day. My findings support the fact that the patient is homebound as defined in Home Care Face to Face Continued: CMS Chapter 7 Medicare Benefits Manual 30.1.1 , The condition of the patient is such that there exists a normal inability to leave home and consequently, leaving home would require a considerable and taxing effort. - Follow Up Care Current Providers and Referrals: MD NOREEN [Other] - As per Instructions Mag Henriquez MD [Medical Doctor] - Osbaldo Rausch MD [Medical Doctor] -
--- NOTE | 2017-03-23 12:26 | GDS ---
[f rep st] DISCHARGE SUMMARY ALL DIAGNOSES: 1. Right upper lobe mass status post bronchoscopic biopsy with pathology pending. 2. Uncontrolled hypertension. 3. Weakness which is multifactorial. 4. Hypothyroid. 5. History of a transient ischemic attack. 6. Depression. 7. Chronic kidney disease. HOSPITAL COURSE: This is an 86-year-old female who presented with weakness. She had recently been diagnosed with a right upper lobe mass as an outpatient, was thus sent in for further evaluation and workup. She underwent bronchoscopic biopsy on 03/22/2017, by Dr. Haro. Pathology is pending at the time of discharge. She was seen by Dr. Rausch with Oncology. She will follow up with him as an outpatient. She complains of weakness with many possible etiologies. She was seen by PT and OT who cleared her for home with home health. She has been quite hypertensive. Previously on amlodipine, I have added atenolol 25 mg on discharge discussing side effects, including worsening of her fatigue, hypotension and bradycardia. I have given her a referral to see Dr. Henriquez with primary care as her daughter is not happy with her current primary care physician. PENDING STUDIES AT TIME OF DISCHARGE: Right upper lobe mass pathology. FOLLOWUP: 1. Dr. Rausch for management of her mass. 2. Dr. Henriquez or other PCP for management of her chronic medical problems. BILLING: I spent more than 30 minutes on the day of discharge coordinating care. /[id number]/MODL MTDD
--- NOTE | 2017-03-23 16:02 | ASDISCHSUM ---
Discharge Information Plan Status: Medically Cleared to Leave: Discharge Date:03/23/2017 03:50 PM CM D/C Disposition: ADT D/C Disposition:Home Health Service Projected Discharge Date:03/23/2017 03:50 PM Transportation at D/C: Discharge Delay Reason: Follow-Up Date:03/23/2017 03:50 PM Discharge Slot: Final Diagnosis: Placement Information Patient Contact Information Contact Name:LAUREEN Relationship:Daughter Address:[address] [place] [address] Work Phone: City:[place] [facility] Phone: State/Zip Code:[place] [address] Email: Financial Information Financial Class: Primary Plan Desc:MEDICARE INPATIENT Primary Plan Number:[id number] Secondary Plan Desc:AARP/MDR SUPPLEMENT Secondary Plan Number:[id number] Assessment Information [facility] CM Progress Note CM Note CM Note Notes: Pt admitted with headache and lung mass. Hx of HTN, TIAs, PNA. She lives at [facility]. PT/OT have cleared her. Pt to have workup for lung mass. CM will follow for any d/c needs. Date Signed: 03/21/2017 03:45 PM Electronically Signed By:TABATHA Briones [facility] CM Progress Note CM Note CM Note Notes: Pt ready for DC. Met with pt's dtr to discuss DC needs. PT/OT cleared pt. Dtr unsure pt needs an RN. She is more interested in having someone come daily to help pt get up and dressed in the AM. Gave dtr a list of pvt duty agencies. Spoke with admin at [facility] where pt lives and let them know that if pt foes need and RN they call CM to help set that up. Date Signed: 03/23/2017 04:01 PM Electronically Signed By:Kristyn Allen LCSW Intervention Information Intervention Type:*IM-Signed Date of Service:03/23/2017 12:49 PM Patient Type:Inpatient Staff Member:Viv Holloway Hours: Discipline: Severity: Comment:
--- NOTE | 2017-03-23 16:41 | ASMTCMCOM ---
CM Note CM Note Notes: Received a call from Renetta in home health at [facility]. Pt just arrived back there after DC from [facility]. They would like pt to have home health for weakness even though pt cleared by PT/OT. DR Anderson wrote for HC RN/PT/OT. Faxed to [facility] at [phone] F, P Date Signed: 03/23/2017 04:33 PM Electronically Signed By:Kristyn Allen LCSW
[2017-03-27] MEDS ORDERED: ERGOCALCIFEROL 50,000 I.UNIT CAP PO SCH (09:00)
== END 2017-03-23 15:50 | disposition home health service (06) | DRG 168 ==
LOC: OBSVTOIN 18:29 → F1N 20:18
PROVIDERS: ADMIT Hospitalist; ATTEND Student in an Organized Health Care Education/Training Program
DX: R91.8 Other nonspecific abnormal finding of lung field (principal); R53.1 Weakness; I12.9 Hypertensive chronic kidney disease with stage 1 through stage 4 chronic kidney disease, or unspecified chronic kidney disease; N18.3 Chronic kidney disease, stage 3 (moderate); E03.9 Hypothyroidism, unspecified; Z86.73 Personal history of transient ischemic attack (TIA), and cerebral infarction without residual deficits; Z87.891 Personal history of nicotine dependence; Z87.01 Personal history of pneumonia (recurrent)
CPT/HCPCS: 96374; 97116-GP; 97161-GP; 97166-GO; 97535-GO; G8978-GP-CI; G8979-GP-CH; G8987-GO-CI; G8988-GO-CI; J0171; J2250; J2550; J3010; J3490; J7613

== ENCOUNTER 2017-08-16 12:59 | Observation (INO) | payer OTHER, MEDICARE ==
[2017-08-16] MEDS ORDERED: ONDANSETRON 4 MG/2 ML VIAL IVP ONE (13:12)
--- NOTE | 2017-08-16 13:15 | EDPHY ---
H & P Time Seen by Provider: 08/16/17 13:05 HPI/ROS: CHIEF COMPLAINT: Abdominal pain and vomiting HISTORY OF PRESENT ILLNESS: Patient says she has "felt bad" for the past 2 days and today had some left lower quadrant abdominal and suprapubic pain associated today with several episodes of vomiting. Presents with severe nausea currently, mild abdominal discomfort. Nausea worse with oral intake. No alicia red blood per rectum or melena. No recent injury or trauma. No fever or chills and no urinary symptoms. REVIEW OF SYSTEMS: Eye: no change in vision ENT: no sore throat Cardiac: no chest pain or syncope Pulmonary: no cough or SOB Abdomen: HPI Musculoskeletal: no back pain Skin: no rash Neuro: no headache Constitutional: no fever : no urinary symptoms A comprehensive 10 point review of systems is otherwise negative aside from elements mentioned in the history of present illness. PAST MEDICAL HISTORY: Includes hysterectomy, left shoulder replacement, lung cancer. Social history: Lives at [place] General Appearance: Alert and conversant, cooperative. Eyes: No scleral icterus. ENT, Mouth: Dry mucous membranes. Respiratory: Normal respiratory effort, breath sounds equal, lungs are clear to auscultation. Cardiovascular: Regular rate and rhythm. Gastrointestinal: Left upper and lower quadrant tenderness without rebound or guarding. Neurological: Alert, face symmetric, normal motor and sensory in extremities. Skin: Warm and dry, no rashes. Musculoskeletal: No peripheral edema. Psychiatric: Not agitated. Emergency Department course/MDM: Plan i-STAT, IV fluids and Zofran for nausea and vomiting, CT scanning abdomen and pelvis. 1526: CT per Dr. Hansen shows constipation but negative for renal colic or bowel obstruction or other cause for abdominal pain. Ceftriaxone 1 g IV, probable UTI and nausea and vomiting, admission for inability to tolerate oral medications at home. Smoking Status: Former smoker Constitutional: Initial Vital Signs Temperature (C) 37 C 08/16/17 12:59 Heart Rate 116 H 08/16/17 12:59 Respiratory Rate 20 08/16/17 12:59 Blood Pressure 174/113 H 08/16/17 12:59 O2 Sat (%) 94 08/16/17 12:59 O2 Delivery Mode Room Air O2 (L/minute) 2 Allergies/Adverse Reactions: alcohol Allergy (Verified 08/16/17 13:10) Home Medications: Medication Instructions Recorded Levothyroxine [Synthroid 50 mcg 50 mcg PO DAILY06 02/29/16 (*)] amLODIPine BESYLATE [Norvasc 10 mg 10 mg PO DAILY 02/29/16 (*)] Alendronate Sodium [Fosamax 70 MG 70 mg PO CHAPMAN@0730 03/20/17 (*)] Ergocalciferol [Vitamin D2 (*)] 50,000 unit PO Q30D 03/20/17 Venlafaxine HCl [Venlafaxine 75MG 112.5 mg PO DAILY 03/20/17 (*)] Atenolol [Tenormin 25 mg (*)] 25 mg PO DAILY #30 tab 03/23/17 Multivitamins [Multivitamin (*)] 1 each PO DAILY 08/16/17 Medical Decision Making - Diagnostics EKG Interpretation: 12-lead EKG interpreted by me; official reading is in trace master. My interpretation is sinus tachycardia rate 104, LVH. Old anterior OR. Imaging Results: Imaging Impressions Abdomen/Pelvis CT 08/16/17 14:39 Impression: 1. Constipation, with a moderate amount of stool throughout the entire colon including the rectosigmoid colon. 2. Sigmoid diverticulosis, without diverticulitis. 3. Ectatic abdominal aorta, with extensive atherosclerotic aorta and iliac arteries. 4. Nonobstructive bilateral nephrolithiasis. No hydronephrosis. 5. Prior cholecystectomy. Attention: This CT examination is specifically designed to evaluate patients who are clinically suspected of having acute obstructive uropathy. This examination does not use radiographic contrast, and as such, provides only a limited evaluation of the abdomen, pelvis, and retroperitoneum. If there is further clinical suspicion for pathological conditions other than obstructive uropathy, a complete CT evaluation of the abdomen and pelvis utilizing intravenous, oral, and rectal contrast should be considered. Findings and recommendations discussed with Emergency Department physician, John Uribe M.D., at 1529 hours, on August 16, 2017. Final report concurs with initial preliminary interpretation. E:CN/ampako Imaging: Discussed imaging studies w/ labor mediator Radiologist Differential Diagnosis: Differential considered including but not limited to diverticulitis, UTI, bowel obstruction, gastroenteritis. Consult/Admit Bed Type: [place] [id number] - Data Points Laboratory Results: Laboratory Results 08/16/17 14:10 08/16/17 14:10 08/16/17 08/16/1718 14:25 14:21 14:10 WBC RBC Hgb POC Hgb 13.6 gm/dL gm/dL (12.6-16.3) Hct POC Hct 40 % % (38-47) MCV MCH MCHC RDW Plt Count MPV Neut % (Auto) Lymph % (Auto) [place] % (Auto) Eos % (Auto) Baso % (Auto) Nucleat RBC Rel Count Absolute Neuts (auto) Absolute Lymphs (auto) Absolute Monos (auto) Absolute Eos (auto) Absolute Basos (auto) Absolute Nucleated RBC Immature Gran % Immature Gran # POC Sodium 142 mEq/L mEq/L (135-145) Sodium POC Potassium 4.1 mEq/L mEq/L (3.3-5.0) Potassium POC Chloride 109 mEq/L mEq/L (97-110) Chloride Carbon Dioxide Anion Gap POC BUN 27 mg/dL H mg/dL (7-23) BUN Creatinine POC Creatinine 1.6 mg/dL H mg/dL (0.6-1.0) Estimated GFR Glucose POC Glucose 98 mg/dL mg/dL (70-100) Calcium TSH 0.913 uIU/mL uIU/mL (0.465-4.680) Urine Color YELLOW Urine Appearance CLEAR Urine pH 5.0 (5.0-7.5) Ur Specific [place] 1.012 (1.002-1.030) Urine Protein NEGATIVE (NEGATIVE) Urine Ketones TRACE H (NEGATIVE) Urine Blood NEGATIVE (NEGATIVE) Urine Nitrate NEGATIVE (NEGATIVE) Urine Bilirubin NEGATIVE (NEGATIVE) Urine Urobilinogen NEGATIVE EU EU (0.2-1.0) Ur Leukocyte Esterase 1+ H (NEGATIVE) Urine RBC 5-10 /hpf H /hpf (0-3) Urine WBC 10-15 /hpf H /hpf (0-3) Ur Epithelial Cells TRACE /lpf /lpf (NONE-1+) Hyaline Casts 1-5 /lpf /lpf (0-1) Urine Mucus TRACE /lpf /lpf (NONE-1+) Urine Glucose NEGATIVE (NEGATIVE) 08/16/17 08/16/17 14:10 14:10 WBC 10.56 10^3/uL H 10^3/uL (3.80-9.50) RBC 4.23 10^6/uL 10^6/uL (4.18-5.33) Hgb 12.6 g/dL g/dL (12.6-16.3) POC Hgb Hct 38.1 % % (38.0-47.0) POC Hct MCV 90.1 fL fL (81.5-99.8) MCH 29.8 pg pg (27.9-34.1) MCHC 33.1 g/dL g/dL (32.4-36.7) RDW 14.7 % % (11.5-15.2) Plt Count 214 10^3/uL 10^3/uL (150-400) MPV 10.0 fL fL (8.7-11.7) Neut % (Auto) 82.2 % H % (39.3-74.2) Lymph % (Auto) 10.4 % L % (15.0-45.0) [place] % (Auto) 5.5 % % (4.5-13.0) Eos % (Auto) 0.9 % % (0.6-7.6) Baso % (Auto) 0.7 % % (0.3-1.7) Nucleat RBC Rel Count 0.0 % % (0.0-0.2) Absolute Neuts (auto) 8.69 10^3/uL H 10^3/uL (1.70-6.50) Absolute Lymphs (auto) 1.10 10^3/uL 10^3/uL (1.00-3.00) Absolute Monos (auto) 0.58 10^3/uL 10^3/uL (0.30-0.80) Absolute Eos (auto) 0.09 10^3/uL 10^3/uL (0.03-0.40) Absolute Basos (auto) 0.07 10^3/uL 10^3/uL (0.02-0.10) Absolute Nucleated RBC 0.00 10^3/uL 10^3/uL (0-0.01) Immature Gran % 0.3 % % (0.0-1.1) Immature Gran # 0.03 10^3/uL 10^3/uL (0.00-0.10) POC Sodium Sodium 143 mEq/L mEq/L (135-145) POC Potassium Potassium 4.4 mEq/L mEq/L (3.3-5.0) POC Chloride Chloride 107 mEq/L mEq/L (97-110) Carbon Dioxide 21 mEq/l L mEq/l (22-31) Anion Gap 15 mEq/L mEq/L (8-16) POC BUN BUN 26 mg/dL H mg/dL (7-23) Creatinine 1.4 mg/dL H mg/dL (0.6-1.0) POC Creatinine Estimated GFR 35 Glucose 92 mg/dL mg/dL (70-100) POC Glucose Calcium 9.1 mg/dL mg/dL (8.5-10.4) TSH Urine Color Urine Appearance Urine pH Ur Specific [place] Urine Protein Urine Ketones Urine Blood Urine Nitrate Urine Bilirubin Urine Urobilinogen Ur Leukocyte Esterase Urine RBC Urine WBC Ur Epithelial Cells Hyaline Casts Urine Mucus Urine Glucose Medications Given: Acetaminophen (Tylenol) 650 mg PO Q4HRS PRN PRN Reason: Pain, Mild/Fever, Can Take PO Stop: 02/12/18 15:52 Last Admin: 08/16/17 20:32 Dose: 650 mg Amlodipine Besylate (Norvasc) 10 mg PO DAILY [facility] Stop: 02/12/18 16:14 Last Admin: 08/16/17 17:28 Dose: 10 mg Atenolol (Tenormin) 25 mg PO DAILY LINDA Stop: 02/12/18 16:14 Last Admin: 08/16/17 17:27 Dose: 25 mg Levothyroxine Sodium (Synthroid) 50 mcg PO DAILY06 [facility] Stop: 02/12/18 16:14 Last Admin: 08/16/17 17:27 Dose: 50 mcg Polyethylene Glycol (Miralax) 17 gm PO DAILY LINDA PRN Reason: Protocol Stop: 02/12/18 16:09 Last Admin: 08/16/17 17:28 Dose: 17 gm Senna/Docusate Sodium (Senokot-S) 1 - 2 tab PO BID LINDA PRN Reason: Protocol Stop: 02/12/18 20:59 Last Admin: 08/16/17 20:32 Dose: 2 tab Venlafaxine HCl (Venlafaxine Hcl) 112.5 mg PO DAILY [facility] Stop: 02/12/18 16:14 Last Admin: 08/16/17 18:04 Dose: 112.5 mg Discontinued Medications Sodium Chloride (Ns) 1,000 mls @ 0 mls/hr IV EDNOW ONE; Wide Open PRN Reason: Protocol Stop: 08/16/17 14:40 Last Admin: 08/16/17 15:29 Dose: 1,000 mls Ceftriaxone Sodium/Dextrose (Rocephin 1 Gm (Premix)) 50 mls @ 100 mls/hr IV EDNOW ONE PRN Reason: Protocol Stop: 08/16/17 16:06 Last Admin: 08/16/17 15:41 Dose: 50 mls Ondansetron HCl (Zofran) 4 mg IVP EDNOW ONE Stop: 08/16/17 13:13 Last Admin: 08/16/17 14:17 Dose: 4 mg Point of Care Test Results: Chemistry 08/16/17 14:21 POC Sodium 142 mEq/L mEq/L (135-145) POC Potassium 4.1 mEq/L mEq/L (3.3-5.0) POC Chloride 109 mEq/L mEq/L (97-110) POC BUN 27 mg/dL H mg/dL (7-23) POC Creatinine 1.6 mg/dL H mg/dL (0.6-1.0) POC Glucose 98 mg/dL mg/dL (70-100) ISTAT H&H 08/16/17 14:21 POC Hgb 13.6 gm/dL gm/dL (12.6-16.3) POC Hct 40 % % (38-47) Departure - Departure Disposition: [facility] Inpatient Acute Clinical Impression: Urinary tract infection Qualifiers: Urinary tract infection type: site unspecified Hematuria presence: without hematuria Qualified Code(s): N39.0 - Urinary tract infection, site not specified Nausea & vomiting Qualifiers: Vomiting type: unspecified Vomiting Intractability: non-intractable Qualified Code(s): R11.2 - Nausea with vomiting, unspecified Condition: Good
--- NOTE | 2017-08-16 13:37 | CPEKG ---
Heart Rate: 104 RR Interval: 577 P-R Interval: 204 QRSD Interval: 104 QT Interval: 352 QTC Interval: 463 P [place]: 76 QRS [place]: -69 T Wave [place]: 82 EKG Severity - ABNORMAL ECG - EKG Impression: SINUS TACHYCARDIA EKG Impression: LAD, CONSIDER LAFB OR INFERIOR INFARCT EKG Impression: LEFT VENTRICULAR HYPERTROPHY EKG Impression: ANTERIOR INFARCT, AGE INDETERMINATE Electronically Signed By: John Uribe 16-Aug-2017 14:03:32
[2017-08-16 14:19] LABS: PLATELET COUNT 214 10^3/uL (150-400)
[2017-08-16] MEDS ORDERED: NS 1,000 ML IV ONE (14:39)
[2017-08-16] MEDS ORDERED: ONDANSETRON DISINTEGRATING 4 MG TAB PO PRN (15:53)
[2017-08-16] MEDS ORDERED: ONDANSETRON 4 MG/2 ML VIAL IVP PRN (15:53)
[2017-08-16] MEDS ORDERED: ACETAMINOPHEN 325 MG TAB PO PRN (15:53)
[2017-08-16] MEDS ORDERED: MAGNESIUM HYDROXIDE 30 ML UDCUP PO PRN (16:08)
[2017-08-16] MEDS ORDERED: LACTULOSE 20 GM/30 ML UDCUP PO PRN (16:08)
[2017-08-16] MEDS ORDERED: BISACODYL 10 MG SUPP PR PRN (16:08)
--- NOTE | 2017-08-16 16:37 | GHP ---
[f rep st] HISTORY AND PHYSICAL DATE OF ADMISSION: 08/16/2017 CHIEF COMPLAINT: Abdominal pain. HISTORY OF PRESENT ILLNESS: This is an 86-year-old female who presents with abdominal pain. She had 2 episodes of vomiting associated with this. She believes that she is constipated. She had 1 bowel movement a day or 2 ago, which was hard pellets. It had been a few days before that that she had hall d another bowel movement. She denies any change in her urinary symptoms, including dysuria, frequenc y, incontinence. She has told me that she just feels unwell over the last few days as well. PAST MEDICAL/SURGICAL HISTORY: 1. Lung cancer, currently undergoing CyberKnife treatment. 2. Hypertension. 3. Recurrent pneumonia. 4. Hypothyroid. 5. History of a TIA. 6. Hard of hearing. MEDICATIONS: Please see medication reconciliation. ALLERGIES: Alcohol. FAMILY HISTORY: Reviewed and noncontributory. SOCIAL HISTORY: She lives at [facility]. She does not drink. She does not smoke. REVIEW OF SYSTEMS: Ten-point review of systems is conducted and is negative, except per HPI. PHYSICAL EXAM: VITAL SIGNS: Blood pressure 170/110, heart rate 105, respiration rate 16, saturating at 87% on room air. Temperature is 37. GENERAL: The patient is a pleasant elderly female who is r esting comfortably, in no acute distress. HEENT: Shows her to be normocephalic, atraumatic. CARDIO VASCULAR: Regular rate and rhythm. No murmurs, rubs, or gallops. PULMONARY: Lungs clear to auscul tation bilaterally. ABDOMEN: Soft. She has normal bowel sounds. She is diffusely tender to palpat ion. No Turner sign. No focal tenderness. SKIN: Exam shows no rash. : Exam shows no Lozano. N EUROLOGIC: Exam shows her to be alert and oriented x3. She is moving all extremities. PSYCHIATRIC: Exam shows a normal mood and affect. LABS: White count is 10.5. Base metabolic panel shows a creatinine of 1.4. Urinalysis shows 10-15 whites, trace ketones. DATA: 1. I discussed with Dr. Silva. Will admit to med/surg. 2. I personally viewed and interpreted her EKG. This shows sinus rhythm. She has inferior Q-waves, as well as slow R-wave progression. This is unchanged from her prior. 3. I reviewed her abdominal CT, which shows constipation, sigmoid diverticulosis, erratic abdominal aorta, nephrolithiasis, prior cholecystectomy. IMPRESSION AND PLAN: 1. Abdominal pain with nausea, vomiting: I think this is most consistent with constipation given he r history, as well as her CT findings. She was given a dose of Rocephin in the ED for a possible uri nary tract infection. At this point, I will hold further antibiotics but follow her urine culture. I will provide her with an aggressive bowel regimen. We have discussed all this. I will check a TSH . 2. Hypertension: She has not taken any of her medicines today. I will give her her Norvasc, as wel l as atenolol and follow. 3. Chronic kidney disease: Will avoid nephrotoxins. 4. Lung cancer: She is being followed by Dr. Rausch. She is not receiving chemotherapy. She is j ust receiving CyberKnife treatment. 5. Hypothyroid: Check TSH and continue Synthroid. 6. Code status: She would like to be full code, full tube. /[id number]/MODL
[2017-08-16] MEDS: LEVOTHYROXINE 50 MCG TAB PO SCH (17:27)
[2017-08-16] MEDS: ATENOLOL 25 MG TAB PO SCH (17:27)
[2017-08-16] MEDS: POLYETHYLENE GLYCOL 3350 17 GM PKT PO SCH (17:28)
[2017-08-16] MEDS: VENLAFAXINE HCL 75 MG TAB PO SCH (18:04)
[2017-08-16] MEDS: SENNOSIDES/DOCUSATE SODIUM TAB PO SCH (20:32)
[2017-08-16] MEDS ORDERED: MELATONIN 3 MG TAB PO SCH (21:00)
[2017-08-17] MEDS: LEVOTHYROXINE 50 MCG TAB PO SCH (05:20)
[2017-08-17] MEDS ORDERED: ENOXAPARIN 40 MG/0.4 ML SYR SC SCH (09:00)
[2017-08-17 09:22] VITALS: BP 145/78
[2017-08-17] MEDS: SENNOSIDES/DOCUSATE SODIUM TAB PO SCH (09:45)
[2017-08-17] MEDS: ATENOLOL 25 MG TAB PO SCH (09:45)
[2017-08-17] MEDS: POLYETHYLENE GLYCOL 3350 17 GM PKT PO SCH (09:45)
[2017-08-17] MEDS: VENLAFAXINE HCL 75 MG TAB PO SCH (09:47)
--- NOTE | 2017-08-17 12:28 | PDIAF ---
- Diagnosis Diagnosis: constipation Code Status: Full Code - Medication Management Discharge Medications: Medications to Continue on Transfer Levothyroxine [Synthroid 50 mcg (*)] 50 mcg PO DAILY06 02/29/16 [Last Taken 02/20] amLODIPine BESYLATE [Norvasc 10 mg (*)] 10 mg PO DAILY 02/29/16 [Last Taken 02/20] Alendronate Sodium [Fosamax 70 MG (*)] 70 mg PO CHAPMAN@0730 03/20/17 [Last Taken 12/21] Ergocalciferol [Vitamin D2 (*)] 50,000 unit PO Q30D 03/20/17 [Last Taken Unknown ] Venlafaxine HCl [Venlafaxine 75MG (*)] 112.5 mg PO DAILY 03/20/17 [Last Taken ] Atenolol [Tenormin 25 mg (*)] 25 mg PO DAILY #30 tab 03/23/17 [Last Taken ] Multivitamins [Multivitamin (*)] 1 each PO DAILY 08/16/17 [Last Taken 08/15/17] Polyethylene Glycol 3350 [Miralax 17 gm (*)] 17 gm PO DAILY #30 pkt 08/17/17 [ Last Taken Unknown] Discharge Medications: Refer to the Discharge Home Medication list for PRN reason. - Orders Diet Recommendation: no restrictions on diet Diet Texture: Regular Texture Diet Additional Instructions: Activity: As tolerated F/U with PCP in one week - Follow Up Care Current Providers and Referrals: Patient,NotPresent [Unknown] - As per Instructions
--- NOTE | 2017-08-17 13:12 | ASMTLACE ---
LACE Length of stay for Answers: Less than 1 day current admission Comorbidities - select Answers: Any tumor (including all that apply lymphoma or leukemia) Cerebrovascular disease (CVA, TIA, aneurysms, vasc ular dementia) # of Emergency department Answers: 1-2 visits in the last 6 months Score: 4 Date Signed: 08/17/2017 01:11 PM Electronically Signed By:Tiara Mcwilliams RN
--- NOTE | 2017-08-17 13:16 | ASMTCMCOM ---
CM Note CM Note Notes: Chart reviewed. Discussed patient with her RN. No needs identified at present. Patient lives at [facility]. Her daughter is to transport her to her home. CM available should needs arise. Plan: Dc to home independently. Date Signed: 08/17/2017 01:15 PM Electronically Signed By:Tiara Mcwilliams RN
--- NOTE | 2017-08-17 13:16 | PDDCSUM ---
Discharge Summary Discharge Summary: 86 YO female admitted with nausea and abdominal pain and found to have constipation. She was admitted and treated accordingly. Constipation has resolved, she has had 3 BM's. She has been started on stool softners. She is in agreement with discharge. She will go back to [facility] She has a hx of lung cancer and she will f/u with Dr. Rausch She did have bacteriuria but no urinary sx's. She received Rocephin x 1 but this was not continued. She is not being d/c on abx DDX: -constipation -emesis -bacteriuria -HTN -Chronic renal insufficiency Meds: See med Rec Exam: NAD AAO RRR CTA B S/NT/ND NO LE EDEMA F/U: SHE WILL F/U WITH PHYSICIAN HOUSE CALL W/I ONE WEEK TOTAL TIME SPENT ON D/C IS 35 MINS
== END 2017-08-17 14:50 | disposition home or self-care (01) ==
LOC: EDBD → EDUNIT# → F1N 17:03
PROVIDERS: ADMIT Student in an Organized Health Care Education/Training Program; ATTEND Family Medicine
DX: K59.00 Constipation, unspecified (principal); R82.71 Bacteriuria; E86.9 Volume depletion, unspecified; I12.9 Hypertensive chronic kidney disease with stage 1 through stage 4 chronic kidney disease, or unspecified chronic kidney disease; N18.9 Chronic kidney disease, unspecified; E03.9 Hypothyroidism, unspecified; N20.0 Calculus of kidney; Z86.73 Personal history of transient ischemic attack (TIA), and cerebral infarction without residual deficits; Z85.118 Personal history of other malignant neoplasm of bronchus and lung; Z87.891 Personal history of nicotine dependence; Z87.01 Personal history of pneumonia (recurrent); Z96.612 Presence of left artificial shoulder joint
CPT/HCPCS: 74176; 93005; 96374; 96375; 99285; G0378; J0696; J2405; 82435-PO; 82565-PO; 82947-PO; 84132-PO; 84295-PO; 84520-PO; 85014-PO

== ENCOUNTER → 2018-03-21 | Outpatient (CLI) | payer OTHER, MEDICARE | LOC: BMCIMAGING 16:33 | PROVIDERS: ATTEND Internal Medicine Geriatric Medicine | DX: R05 Cough (principal); R91.8 Other nonspecific abnormal finding of lung field; Z85.118 Personal history of other malignant neoplasm of bronchus and lung ==